=== PATIENT | female | born 1975 | race Caucasian/White ===

== ENCOUNTER 2024-02-11 11:52 | Emergency (ER) | payer OTHER ==
[~2024-02-11] VITALS: Ht 165.1 cm; Wt 73.5 kg
[2024-02-11] MEDS ORDERED: NAPR-1164 PO (12:15)
[2024-02-11 12:23] VITALS: BP 120/71; TEMP 98; O2SAT 100
== END 2024-02-11 12:24 | disposition home or self-care (01) ==
LOC: ER 12:09
DX: S83.8X2A Sprain of other specified parts of left knee, initial encounter (principal); Z79.899 Other long term (current) drug therapy; W18.39XA Other fall on same level, initial encounter; Y93.73 Activity, racquet and hand sports; Y92.89 Other specified places as the place of occurrence of the external cause; Y99.8 Other external cause status